=== PATIENT | female | born 1995 | race Caucasian/White ===

== ENCOUNTER 2016-09-19 07:44 | Inpatient (IN) | payer MEDICAID, OTHER ==
[~2016-09-19] VITALS: Ht 160 cm; Wt 90.2 kg
[2016-09-19 07:48] VITALS: Ht 160 cm; Wt 90.2 kg
[2016-09-19] MEDS ORDERED: PREN1TAB17 PO (07:48)
[2016-09-19 07:49] VITALS: BP 128/73; RESP 16
--- NOTE | 2016-09-19 08:10 | RADRPT ---
PROCEDURE: US OB biophysical profile. CLINICAL INDICATION: decreased movements, spontaneous rupture of membranes TECHNIQUE: Multiple sonographic images of the pelvis were obtained. The images were reviewed on a PACS workstation. COMPARISON: No prior studies are available for comparison. FINDINGS: There is a single viable intrauterine gestation. Cardiac activity is present with 148 beats per min [place]. There is a vertex presentation. The placenta is anterior. There is no evidence of placental abruption. There is a normal amount of amniotic fluid with an PADDY = 9.2 cm. Biophysical profile: movement 2/2 tone 2/2. breathing 2/2 PADDY 2/2 Total 03/12 RPTAT: AA . IMPRESSION: Normal biophysical profile. . .Fish Melendrez MD, Date Time Electronically viewed and signed by .Fish Melendrez MD, MD on 09/19/2016 08:10 .S/
--- NOTE | 2016-09-19 08:18 | RADRPT ---
PROCEDURE: US OB. CLINICAL INDICATION: Size and dates , SROM TECHNIQUE: Multiple sonographic images of the pelvis and gravid uterus were obtained. The images were reviewed on a PACS workstation. COMPARISON: No prior studies are available for comparison. FINDINGS: There is a single viable intrauterine gestation. Cardiac activity is present with 136 beats per min [place]. There is a vertex presentation. The placenta is anterior. There is no evidence for an abruption or placenta previa. Measurements were made in order to determine age. The results are as follows: BPD =8.4 cm HC =31.9 cm AC =33.9 cm FL =6.5 cm Estimated gestational age of approximately 35 weeks and 2 days based on ultrasound measurements. Clinical age: 37 weeks and 3 days. The estimated date of delivery is 10/22/16, based on ultrasound measurements. The EFW = 2857 g, 25.5%, based on LMP age. RPTAT: AA IMPRESSION: Single viable intrauterine gestation of approximately 35 weeks and 2 days based on ultrasound measu rements. .Fish Melendrez MD, Date Time Electronically viewed and signed by .Fish Melendrez MD, on 09/19/2016 08:18 .S/
[2016-09-19 08:40] LABS: ADD UMIC YES; URINE BILIRUBIN (Dip) 1+ (NEGATIVE); URINE BLOOD (Dip) 2+ (NEGATIVE); URINE COLOR DK. YELLOW (YELLOW); URINE GLUCOSE (Dip) NEGATIVE (NEGATIVE); URINE KETONES (Dip) TRACE (NEGATIVE); URINE LEUKOCYTE ESTERASE (Dip) NEGATIVE (NEGATIVE); URINE NITRITE (Dip) NEGATIVE (NEGATIVE); URINE TOTAL PROTEIN (Dip) 1+ (NEGATIVE); URINE UROBILINOGEN (Dip) 0.2 E.U./dL (0.1-1.0)
[2016-09-19 09:00] LABS: ICTOTEST NEGATIVE (NEGATIVE)
[2016-09-19] MEDS ORDERED: MISOPROSTOL 200 MCG TAB PR PRN (09:30)
[2016-09-19] MEDS ORDERED: LIDOCAINE 1% (MPF) 30 ML INJ INJ PRN (09:30)
[2016-09-19] MEDS ORDERED: OXYTOCIN 30 UNITS/LR 500 ML IV PRN (09:30)
[2016-09-19] MEDS ORDERED: METHYLERGONOVINE 0.2 MG INJ IM PRN (09:30)
[2016-09-19] MEDS ORDERED: BUTORPHANOL 2 MG INJ IV PRN (09:30)
[2016-09-19] MEDS ORDERED: CARBOPROST 250 MCG INJ IM PRN (09:30)
[2016-09-19] MEDS ORDERED: OXYTOCIN 30 UNITS/LR 500 ML IV SCH ×2 (09:30)
[2016-09-19] MEDS: LACTATED RINGER'S 1,000 ML IV SCH ×4 (09:30→23:31)
[2016-09-19 09:54] LABS: BASOPHILS % 0.3 % (0.0-2.0); EOSINOPHILS % 0.2 % (0.0-7.0); HEMATOCRIT 33.9 % (37.0-47.0); HEMOGLOBIN 11.2 g/dl (12.0-16.0); LYMPHOCYTES % 23.1 % (15.0-51.0); MEAN CORPUSCULAR HEMOGLOBIN 24.3 pg (29.0-33.0); MEAN CORPUSCULAR VOLUME 73.6 fl (82.0-101.0); MEAN PLATELET VOLUME 8.6 fl (7.4-10.4); MONOCYTE # 0.5 10^3/ul (0.3-0.9); MONOCYTES % 5.3 % (0.0-11.0); NEUTROPHIL # 6.2 10^3/ul (1.6-7.5); NEUTROPHILS % 71.1 % (39.0-77.0); PLATELET COUNT 390 10^3/UL (140-440); RED CELL DISTRIBUTION WIDTH 15.1 % (11.5-14.5); UNCORRECTED WBC 8.8 10^3/ul (4.8-10.8); WHITE BLOOD COUNT 8.8 10^3/ul (4.8-10.8)
[2016-09-19 10:09] LABS: INR 0.85; PROTIME 11.6 Sec (12.2-14.2); PT RATIO 0.9
[2016-09-19 10:10] LABS: PARTIAL THROMBOPLASTIN TIME 27.5 Sec (25.0-35.0)
[2016-09-19 10:19] LABS: CONDITION 1; LH ANALYZER COMMENTS 1
[2016-09-19] MEDS ORDERED: MISOPROSTOL 25 MCG CAPSULE PO ONE (13:00)
[2016-09-20] MEDS ORDERED: EPHEDrine SULFATE 50 MG/5 ML SYG IV PRN
[2016-09-20] MEDS ORDERED: FENTAnyl 2MCG/ML-ROPIV 0.2% 100 ML BAG EPI SCH
[2016-09-20] MEDS ORDERED: FENTAnyl 2MCG/ML-ROPIV 0.2% 100 ML ONE (00:20)
[2016-09-20] MEDS: LACTATED RINGER'S 1,000 ML IV SCH ×4 (01:23→22:38)
[2016-09-20] MEDS ORDERED: OXYTOCIN 30 UNITS/LR 500 ML IV ONE ×2 (02:26→03:22)
[2016-09-20] MEDS ORDERED: morphine SULFATE/PF (10 MG/10 ML) INJ ONE (02:26)
[2016-09-20] MEDS ORDERED: METOCLOPRAMIDE 10 MG INJ ONE (02:26)
[2016-09-20] MEDS ORDERED: OXYTOCIN 10 UNIT INJ ONE (02:26)
[2016-09-20] MEDS ORDERED: ONDANSETRON 4 MG INJ ONE (02:26)
[2016-09-20] MEDS ORDERED: EPHEDrine SULFATE 50 MG/5 ML SYG ONE (02:26)
[2016-09-20] MEDS ORDERED: CEFAZOLIN 2 GM/50 ML (PMX) 50 ML IVPB ONE (02:44)
[2016-09-20] MEDS ORDERED: BUPIVACAINE 0.75%/DEXT (SPINAL) 2 ML INJ ONE (02:45)
--- NOTE | 2016-09-20 02:59 | HP ---
DATE OF ADMISSION: 09/19/2016 HISTORY OF PRESENT ILLNESS: A 21-year-old female 1, para 0, estimated date of delivery 10/2016, at 37+ weeks gestation who presented with spontaneous rupture of membranes. PAST MEDICAL HISTORY: Unremarkable. PAST SURGICAL HISTORY: Removal of cyst from shoulder. ALLERGIES: NO KNOWN ALLERGIES. FAMILY HISTORY: Diabetes. PHYSICAL EXAMINATION: VITAL SIGNS: The patient is afebrile. Vital signs stable. HEAD, NECK, AND CHEST: Within normal limits. ABDOMEN: Soft, nontender, and gravid. EXTREMITIES: Within normal limits. NEUROLOGIC: Within normal limits. HOSPITAL COURSE: The patient was admitted with spontaneous rupture of membranes. The patient was g iven induction of labor. The patient has progressed to 5 cm dilation. heart decelerations we re noted. Oxygen via mask was given. IV rate was increased. The patient was placed in lateral dec ubitus position. heart tracing still shows recurrent decelerations. [facility] Risks, benefits, and alternatives of the procedure were explained to the patient. The patient said she understood and gave informed consent for the procedure. Dictated By: DIONTE ROBBINS MD GD/NTS Conf#: [id number] DID#: [id number]
[2016-09-20] MEDS ORDERED: OXYTOCIN 30 UNITS/LR 500 ML IV PRN ×2 (03:00→08:30)
[2016-09-20] MEDS ORDERED: CEFAZOLIN 2 GM/50 ML (PMX) 50 ML IV SCH (03:00)
[2016-09-20] MEDS ORDERED: METHYLERGONOVINE 0.2 MG INJ IM PRN ×2 (03:00→08:30)
[2016-09-20] MEDS ORDERED: MISOPROSTOL 200 MCG TAB PR PRN ×2 (03:00→08:30)
[2016-09-20] MEDS ORDERED: CARBOPROST 250 MCG INJ IM PRN ×2 (03:00→08:30)
[2016-09-20] MEDS ORDERED: OXYTOCIN 30 UNITS/LR 500 ML IV SCH (03:00)
[2016-09-20] MEDS ORDERED: SUCCINYLCHOLINE CHLORIDE 100 MG/5 ML SYG IV ONE (03:23)
[2016-09-20] MEDS ORDERED: ROCURONIUM 50 MG INJ ONE (03:23)
[2016-09-20] MEDS ORDERED: GLYCOPYRROLATE 0.4 MG INJ ONE (03:23)
[2016-09-20] MEDS ORDERED: NEOSTIGMINE 3 MG/3 ML SYRINGE ONE ×2 (03:23)
[2016-09-20] MEDS ORDERED: LIDOCAINE 2% (SDV) 5 ML INJ ONE (03:23)
[2016-09-20] MEDS ORDERED: PROPOFOL 20 ML ONE (03:23)
[2016-09-20] MEDS ORDERED: NALOXONE (0.4 MG/ML) INJ IV PRN ×2 (04:00)
[2016-09-20] MEDS ORDERED: morphine 1 MG/ML 30 ML (PCA) IV SCH (04:00)
[2016-09-20] MEDS ORDERED: OXYCODONE/ACETAMINOPHEN (5/325) TAB PO PRN ×3 (04:00→08:30)
[2016-09-20] MEDS ORDERED: ONDANSETRON 4 MG INJ IV PRN ×2 (04:00)
[2016-09-20] MEDS ORDERED: DIPHENHYDRAMINE 50 MG INJ IV PRN (04:00)
--- NOTE | 2016-09-20 05:06 | OPR ---
DATE OF OPERATION: 09/20/2016 PREOPERATIVE DIAGNOSES: at term with nonreassuring heart tracing. POSTOPERATIVE DIAGNOSES: at term with nonreassuring heart tracing. OPERATION PERFORMED: Primary low transverse section. SURGEON: Dionte Vaughn MD TELETYPE INSTALLER: Arabella Louis MD ANESTHESIA: General. ANESTHESIOLOGIST: Dr. Kerr DESCRIPTION OF PROCEDURE: The patient was taken to the operating room and placed on the operating t able. The patient's epidural anesthesia was not functioning. An attempt was made for spinal anesth esia; however, it was not successful. The patient was placed in supine position. The area was prep ared and draped in the usual sterile fashion. After adequate general anesthesia was given, using a scalpel, a Pfannenstiel incision was made about 2 fingerbreadths above the symphysis pubis. The inc ision was carried to the fascia. The fascia was incised and extended bilaterally with May scissors . Two Ashlyn's were used to separate the fascia from the muscle. The muscle was dissected in midli ne down to peritoneum. The peritoneum was bluntly entered. Using a scalpel, a small transverse inc ision was made in the lower segment of the uterus. Upon entering the uterine cavity, bandage scisso rs were inserted to extend the incision bilaterally, curved up. Baby was delivered from cephalic pr esentation. After suctioning clear of amniotic fluid, the baby was handed off to the team in attendance. Apgars were 8 and 9. The placenta was delivered without difficulty. The uterus was closed with #1 Monocryl continuous locked after assuring hemostasis. Both ovaries and tubes were i nspected and all looked normal. The peritoneal cavity was irrigated with warm saline. The peritone um was closed with 2-0 Vicryl continuous. The fascia was closed with #1 Vicryl continuous in 2 segm ents. Subcutaneous tissue was reapproximated with 2-0 plain. The skin was closed with danny. ESTIMATED BLOOD LOSS: 600 mL COMPLICATIONS: None. COUNTS: All counts were correct. Dictated By: DIONTE VAUGHN MD GD/NTS Conf#: [id number] DID#: [id number]
[2016-09-20] MEDS: OXYTOCIN 30 UNITS/LR 500 ML IV SCH ×2 (08:18→10:57)
[2016-09-20] MEDS ORDERED: LANOLIN 7 GM TUBE TOP PRN (08:30)
[2016-09-20 08:45] VITALS: BP 114/59; PULSE 90; RESP 16
[2016-09-20] MEDS: KETOROLAC 30 MG INJ IV PRN ×2 (08:52→15:12)
[2016-09-20] MEDS: SENNA/DOCUSATE NA (8.6MG/50MG) TAB PO SCH ×2 (09:00→21:00)
[2016-09-20 12:17] VITALS: BP 119/59; PULSE 89; RESP 16
[2016-09-20 16:50] VITALS: BP 103/65; PULSE 67; RESP 18
[2016-09-20 20:15] VITALS: BP 108/64; PULSE 91; RESP 20
[2016-09-21] VITALS: BP 106/56; PULSE 89; RESP 20
[2016-09-21 03:45] VITALS: BP 115/75; PULSE 80; RESP 18
[2016-09-21] MEDS: OXYCODONE/ACETAMINOPHEN (5/325) TAB PO PRN (03:45)
[2016-09-21] MEDS: IBUPROFEN 800 MG TAB PO SCH ×3 (06:00→21:42)
[2016-09-21 08:34] VITALS: BP 109/62; PULSE 80; RESP 14
[2016-09-21 08:35] LABS: BASOPHILS % 0.3 % (0.0-2.0); EOSINOPHILS % 0.4 % (0.0-7.0); HEMATOCRIT 26.2 % (37.0-47.0); HEMOGLOBIN 8.6 g/dl (12.0-16.0); LYMPHOCYTES # 2.2 10^3/ul (0.8-2.9); LYMPHOCYTES % 19.1 % (15.0-51.0); MEAN CORPUSCULAR HEMOGLOBIN 24.5 pg (29.0-33.0); MEAN CORPUSCULAR HGB CONC 32.8 g/dl (32.0-37.0); MEAN CORPUSCULAR VOLUME 74.7 fl (82.0-101.0); MEAN PLATELET VOLUME 8.4 fl (7.4-10.4); MONOCYTE # 0.7 10^3/ul (0.3-0.9); MONOCYTES % 6.3 % (0.0-11.0); NEUTROPHIL # 8.6 10^3/ul (1.6-7.5); NEUTROPHILS % 73.9 % (39.0-77.0); PLATELET COUNT 289 10^3/UL (140-440); RED CELL DISTRIBUTION WIDTH 15.2 % (11.5-14.5); UNCORRECTED WBC 11.6 10^3/ul (4.8-10.8); WHITE BLOOD COUNT 11.6 10^3/ul (4.8-10.8)
[2016-09-21 09:04] LABS: CONDITION 1; LH ANALYZER COMMENTS 1
[2016-09-21] MEDS: SENNA/DOCUSATE NA (8.6MG/50MG) TAB PO SCH ×2 (09:46→20:49)
[2016-09-21 15:57] VITALS: BP 110/62; PULSE 86; RESP 18
[2016-09-21 20:00] VITALS: BP 110/53; PULSE 86; RESP 18
--- NOTE | 2016-09-21 20:10 | QN ---
Documentation Comment No complaint Afebrile VSS Abdomen soft POD #1 Stable Ambulate Advance diet. DIONTE ROBBINS MD Sep 21, 2016 20:10
[2016-09-22 04:01] VITALS: BP 119/67; PULSE 67; RESP 18
[2016-09-22] MEDS: IBUPROFEN 800 MG TAB PO SCH ×3 (05:48→21:31)
[2016-09-22 08:00] VITALS: BP 108/80; PULSE 80; RESP 18
[2016-09-22] MEDS: SENNA/DOCUSATE NA (8.6MG/50MG) TAB PO SCH ×2 (09:37→21:31)
[2016-09-22 16:00] VITALS: BP 121/61; PULSE 80; RESP 18
--- NOTE | 2016-09-22 16:09 | QN ---
Documentation Comment No complaint Afebrile VSS Abdomen soft POD #2 Stable Routine post-op care. DIONTE ROBBINS MD Sep 22, 2016 16:09
[2016-09-22 19:55] VITALS: BP 124/65; PULSE 81; RESP 18
[2016-09-23 03:47] VITALS: BP 110/59; PULSE 70; RESP 18
[2016-09-23] MEDS: IBUPROFEN 800 MG TAB PO SCH (06:01)
--- NOTE | 2016-09-23 07:04 | DS ---
DATE OF ADMISSION: 09/19/2016 DATE OF DISCHARGE: 09/23/2016 ADMITTING DIAGNOSIS: at term. HISTORY: A 21-year-old female 1, para 0 at time of admission, para 1 at time of discharge, at 37+ weeks gestation presented with spontaneous rupture of membranes. During labor, the patient w as noted to have heart decelerations. HOSPITAL COURSE: On 09/20/2016, after obtaining informed consent, the patient underwent a primary l ow transverse section. The patient's operation was uncomplicated. Postoperatively, the pa tient was given clear liquid diet which was advanced to regular diet which she tolerated well. The patient is discharged on postop day #3 after having had adequate bladder and bowel function. CONDITION ON DISCHARGE: Stable. DISCHARGE INSTRUCTIONS: DIET: Regular. ACTIVITIES: Pelvic rest and no strenuous activities. MEDICATIONS: 1. Motrin as needed for pain. 2. Continue with vitamins and ferrous sulfate. Follow up in clinic in 1 week. FINAL DIAGNOSES 1. Term delivered by section. 2. Nonreassuring tracing. 3. Mother with single liveborn. DISPOSITION: Discharged home. Dictated By: DIONTE ROBBINS MD GD/NTS Conf#: [id number] DID#: [id number]
[2016-09-23 07:49] VITALS: BP 113/74; PULSE 69; RESP 19
[2016-09-23] MEDS ORDERED: DIPHTH/TET/ACEL PERTUSS (ADULT) 0.5 ML VIAL IM* ONE (09:00)
[2016-09-23] MEDS: SENNA/DOCUSATE NA (8.6MG/50MG) TAB PO SCH (10:02)
[2016-09-23] MEDS: OXYCODONE/ACETAMINOPHEN (5/325) TAB PO PRN (10:02)
== END 2016-09-23 11:55 | disposition home or self-care (01) | DRG 766 ==
LOC: OBT 07:44 → L-D 07:45 → OBT 09:06 → L-D 09:08 → PP1 09-20 08:44
PROVIDERS: ADMIT Obstetrics & Gynecology; ATTEND Obstetrics & Gynecology
PROC: 10D00Z1 Extraction of Products of Conception, Low, Open Approach (ICD-10-PCS; principal; 2016-09-20 03:00)
DX: O76 Abnormality in fetal heart rate and rhythm complicating labor and delivery (principal); Z37.0 Single live birth; Z3A.37 37 weeks gestation of pregnancy
CPT/HCPCS: 76815; 76818; 81001; 81003; 84112; 85025; 85610; 85730; 86592; 86900; 86901; 87340; 88307; 90715; 99464; G0463; J0330; J0690; J1885; J2270; J2274; J2405; J2590; J2710; J2765; J3010; J7120